=== PATIENT | male | born 1995 | race Caucasian/White ===

== ENCOUNTER 2018-01-14 08:42 | Day surgery (SDC) | payer OTHER ==
[~2018-01-14 08:42] MED LIST: [UNRECOGNIZED DRUG - CODE] PO
[2018-01-14] MEDS ORDERED: LIDOCAINE 2% 100 MG/5 ML UJET TP ONE (11:21)
[2018-01-14] MEDS ORDERED: fentaNYL 0.05 MG/ML VIAL ONE (11:56)
[2018-01-14] MEDS ORDERED: fentaNYL 0.05 MG/ML VIAL IVP ONE (12:45)
== END 2018-01-14 12:34 | disposition home or self-care (01) ==
LOC: MDS 08:42 → MMU 08:43 → MDS 12:34
PROVIDERS: ATTEND Internal Medicine Gastroenterology
DX: K64.4 Residual hemorrhoidal skin tags (principal); K21.9 Gastro-esophageal reflux disease without esophagitis; F17.210 Nicotine dependence, cigarettes, uncomplicated
CPT/HCPCS: 45378; J3010

== ENCOUNTER 2020-09-29 13:15 | Outpatient (CLI) | payer OTHER, SELFPAY | END 2020-09-29 21:15 | disposition home or self-care (01) | LOC: MLB 13:15 → EDSTATUS 10-01 15:50 | PROVIDERS: ATTEND Internal Medicine Gastroenterology | DX: U07.1 COVID-19 (principal) ==

== ENCOUNTER 2020-10-29 10:07 | Day surgery (SDC) | payer OTHER, SELFPAY ==
[~2020-10-29] VITALS: Ht 180.3 cm; Wt 102.5 kg
[2020-10-29] MEDS ORDERED: LIDOCAINE 2% 100 MG/5 ML UJET TP ONE ×2 (11:14→13:15)
[2020-10-29] MEDS ORDERED: MIDAZOLAM 2 MG/2 ML VIAL ONE (11:14)
[2020-10-29] MEDS ORDERED: fentaNYL citrate 0.05 MG/ML VIAL ONE (11:14)
[2020-10-29] MEDS ORDERED: MIDAZOLAM 5 MG/5 ML VIAL ONE (12:49)
[2020-10-29] MEDS ORDERED: MIDAZOLAM 2 MG/2 ML VIAL IVP ONE (13:15)
[2020-10-29] MEDS ORDERED: fentaNYL citrate 0.05 MG/ML VIAL IVP ONE (13:15)
== END 2020-10-29 14:06 | disposition home or self-care (01) ==
LOC: MDS 10:07 → MMU 10:08 → MDS 14:06
PROVIDERS: ATTEND Internal Medicine Gastroenterology
DX: K62.5 Hemorrhage of anus and rectum (principal); K64.8 Other hemorrhoids; E66.9 Obesity, unspecified; Z79.899 Other long term (current) drug therapy; Z20.828 Contact with and (suspected) exposure to other viral communicable diseases
CPT/HCPCS: 45378; J2250; J3010; U0003